=== PATIENT | female | born 1950 | race Caucasian/White ===

== ENCOUNTER 2016-05-18 08:06 | Day surgery (SDC) | payer OTHER ==
[~2016-05-18] VITALS: Ht 167.6 cm; Wt 49.9 kg
[~2016-05-18 08:06] MED LIST: ATEN1TAB75 PO; LORTA5 PO; OXYB5TAB PO; PARO40TA PO; PREG300 PO; PRIN10TA PO; ROSU40 PO; XANA0.5T PO
[2016-05-18] MEDS ORDERED: SODIUM BICARBONATE 100 MEQ in D5W 1000 ML IV SCH (08:45)
[2016-05-18 09:10] VITALS: BP 143/94; PULSE 93; RESP 18; TEMP 98.5; O2SAT 95
[2016-05-18 09:15] LABS: AUTOMATED NEUTROPHIL # 5.2 TH/MM3 (1.8-7.7); BASOPHIL % 0.5 % (0.0-2.0); EOSINOPHIL % 0.4 % (0.0-4.0); HEMATOCRIT 36.4 % (35.0-46.0); HEMO FLAGS DIFF FINAL; LYMPH % 18.8 % (9.0-44.0); LYMPHOCYTE # 1.5 TH/MM3 (1.0-4.8); MEAN CELL VOLUME 84.3 FL (80.0-100.0); MEAN CORPUSCULAR HEMOGLOBIN 28.8 PG (27.0-34.0); MEAN CORPUSCULAR HGB CONC 34.2 % (32.0-36.0); MONO % 16.2 % (0.0-8.0); NEUT % 64.1 % (16.0-70.0); PLATELET COUNT 253 TH/MM3 (150-450); RED BLOOD COUNT 4.31 MIL/MM3 (4.00-5.30); RED CELL DISTRIBUTION WIDTH 14.5 % (11.6-17.2); WHITE BLOOD COUNT 8.1 TH/MM3 (4.0-11.0)
[2016-05-18 09:21] LABS: INTERNATIONAL NORMALIZED RATIO 1.1 RATIO; PROTHROMBIN TIME - PATIENT 12.3 SEC (9.8-11.6)
[2016-05-18 09:36] LABS: BICARBONATE 29.2 MEQ/L (21.0-32.0); POTASSIUM 4.2 MEQ/L (3.5-5.1)
[2016-05-18] MEDS ORDERED: IOHEXOL 350 MG/ML 100 ML BTL (for Cath Lab) OTHER ONE (10:19)
[2016-05-18] MEDS ORDERED: MIDAZOLAM HCL 2 MG/2 ML VIAL ONE ×2 (10:32→11:27)
[2016-05-18] MEDS ORDERED: HEPARIN-NS/PF INJ 500 ML ONE (10:32)
[2016-05-18] MEDS ORDERED: HEPARIN SODIUM - IV 10,000 UNITS/10 ML VIAL ONE (10:54)
[2016-05-18] MEDS ORDERED: CLOPIDOGREL 300 MG TAB ONE (11:52)
[2016-05-18] MEDS ORDERED: oxyCODONE/ACETAMINOPHEN 5 MG/325 MG TAB PO PRN (12:00)
[2016-05-18] MEDS ORDERED: CLOPIDOGREL 75 MG TAB PO SCH (12:00)
--- NOTE | 2016-05-18 12:00 | HHI.PR ---
Immediate Post Op Note Procedure Date: May 18, 2016 Pre Op Diagnosis: PAD, B LE Post Op Diagnosis: PAD, B LE Surgeon: Phill Moore Reinforcing Steel Machine Operator(s): none Procedure: Aortogram w/ B LE angiogram L SFA STRAW HAT BRIM RAISER OPERATOR (ISR) with L SFA stent (6x200 Protege) R MANAGED CARE LIAISON Angioseal Findings: 1. L SFA occlusion (in stent), able to recanalize and STRAW HAT BRIM RAISER OPERATOR; stented from mid-SFA to proximal SFA with 6mm stent excellent runoff and palpable DP after procedure 2. R SFA occlusion (in stent) Complications: none apparent Specimen(s) removed: none Estimated blood loss: 10 mL Anesthesia: MAC Drains: None Patient to: Other (DOCU) Patient Condition: Good Implant/Devices: SEE IMPLANT LOG (if applicable) Date/Time of Procedure: SEE SURGICAL CARE RECORD Phill Moore MD May 18, 2016 12:00
--- NOTE | 2016-05-18 12:05 | PD.VS.PN ---
Subjective Subjective/Hospital Course Pt s/p Aortogram w/ B LE angiogram, L SFA MUSHROOM GROWER/stent and R MANAGER PSYCHOLOGY angioseal. Doing well immediately post procedurally. Palpable pedal pulse on the LEFT Objective Vitals/I&O Date Time Temp Pulse Resp B/P Pulse Ox O2 Delivery O2 Flow Rate FiO2 05/18/16 09:10 98.5 93 18 143/94 95 Physical Exam R groin ok; L DP palpable pulse Laboratory Laboratory Tests Test 05/18/16 09:00 White Blood Count 8.1 Red Blood Count 4.31 Hemoglobin 12.4 Hematocrit 36.4 Mean Corpuscular Volume 84.3 Mean Corpuscular Hemoglobin 28.8 Mean Corpuscular Hemoglobin 34.2 Concent Red Cell Distribution Width 14.5 Platelet Count 253 Mean Platelet Volume 8.1 Neutrophils (%) (Auto) 64.1 Lymphocytes (%) (Auto) 18.8 Monocytes (%) (Auto) 16.2 Eosinophils (%) (Auto) 0.4 Basophils (%) (Auto) 0.5 Neutrophils # (Auto) 5.2 Lymphocytes # (Auto) 1.5 Monocytes # (Auto) 1.3 Eosinophils # (Auto) 0.0 Basophils # (Auto) 0.0 CBC Comment DIFF FINAL Differential Comment Prothrombin Time 12.3 Prothromb Time International 1.1 Ratio Sodium Level 132 Potassium Level 4.2 Chloride Level 96 Carbon Dioxide Level 29.2 Anion Gap 7 Blood Urea Nitrogen 4 Creatinine 0.41 Estimat Glomerular Filtration 156 Rate Random Glucose 93 Calcium Level 8.4 Assessment and Plan Plan Plavix load in PACU D/C home after 4 hours Phill Moore MD May 18, 2016 12:05
[2016-05-18] MEDS ORDERED: hydrALAZINE HCL 20 MG/ML VIAL IV PUSH ONE (15:30)
[2016-05-18] MEDS ORDERED: RESP: ALBUTEROL 2.5 MG/IPRATROPIUM 0.5 MG NEB (SCH) NEB ONE (16:30)
--- NOTE | 2016-05-20 09:17 | MP ---
cc: CAREY MOORE MD Corrected Copy: 05/27/16 DATE OF SURGERY 05/18/2016 PREOPERATIVE DIAGNOSIS Bilateral lower extremity peripheral vascular occlusive disease, symptomatic. POSTOPERATIVE DIAGNOSIS Bilateral lower extremity peripheral vascular occlusive disease, symptomatic. PROCEDURE 1. Aortogram with bilateral lower extremity angiograms 2. Left SFA angioplasty and subsequent stent with a 6 x 200 Protege self-expanding stent. ATTENDING SURGEON Carey Moore MD ANESTHESIA Local with sedation INDICATIONS Ms. Segovia is a lady who has bilateral lower extremity pain and diminished YASH's. Her symptoms are somewhat consistent with rest pain. She is taken to the operating room for angiographic evaluation and treatment. There is no prior catheterization imaging available for my review. DESCRIPTION OF PROCEDURE Informed consent was obtained from the patient. She was taken to the operating room, placed supine on the operating room table and an appropriate time out was taken to ensure the patient's identify, operative site and planned procedure. The administration of 900 mg of Clindamycin was initiated and will be discontinued after a single preoperative dose. Clindamycin was chosen because of the patient's penicillin allergy. Everyone in the room agreed with the time out and we proceeded. Her bilateral groins were prepped and draped. The right groin was anesthetized with 1% lidocaine. A 21 gauge Micropuncture sheath was used to accessed the right common femoral artery. This was exchanged using Seldinger technique through the micropuncture sheath through which a 0.025 Glidewire was introduced. The micropuncture sheath was exchanged for a 4 Hungarian sheath and a VCF catheter was placed over the wire into the sheath and the aortogram and pelvic arteriograms were obtained. The Glidewire was re-introduced, navigated out to the left common femoral artery. The VCF catheter was advanced over this and a left lower extremity arteriogram was obtained. The patient was systemically heparinized with 5000 units of IV Heparin. A Juan wire was introduced through the VCF catheter and the 4 Hungarian sheath removed and a 6 Hungarian 55 cm antral sheath was then introduced and the CXI catheter was placed over the Juan, the Juan was exchanged for a PESTICIDE APPLICATOR wire. Using the CXI and PESTICIDE APPLICATOR, we were able to navigate into the SMA. The patient had a previous stent that was occluded, but we were able to navigate through this and into the distal aspect of the stent and indeed into the SFA distal to the stent. The Juan wire was reintroduced. The entire area was angioplastied with 3 mm and then a 4 mm drug-coated balloon with Paclitaxel. The completion of the angiogram showed improvement of the in-stent occlusion, but there was a flow limiting dissection more proximally. This was treated with a 6 x 200 stent that was post-dilated with a 5 mm balloon. Completion Angiograms showed an excellent results and a recoil extravasation. There was brisk filling of the pedal vessels. The wire, catheter and sheath were removed and a short 6 inch sheath was introduced and the right lower extremity arteriogram was obtained through the 6 Hungarian sheath. The 6 Hungarian sheath was removed and the groin was closed with Angio-Seal. There were no complications. I was present and scrubbed and performed the entire procedure. INTERPRETATION OF IMAGING The patient has patent renal arteries, patent infrarenal, aorta, common iliac arteries, hypogastric and external iliac arteries bilaterally. The left common femoral artery and profunda are patent. The SFA is occluded, there is an occluded stent in the SFA with distal reconstitution distal to the stent and three vessel runoff. After re-canalizing the occluded SFA and angioplasty, there is a flow limiting section proximally and then after placing a stent, this has completely resolved. There is no recoil extravasation. There is no embolic complications to the foot. On the right hand side, the patient has a patent common femoral and profunda and proximal SFA, again there is an extensive amount of stenting in the right SFA done elsewhere and all this is occluded with this reconstitution and three vessel runoff. MD HOANG Chaidez/MEET /10:00 AM /7:24 AM NAIF
== END 2016-05-18 16:55 | disposition home or self-care (01) ==
LOC: HDOC 08:06 → HDIC 08:06 → HDOC 16:55
PROVIDERS: ATTEND Surgery
DX: I73.9 Peripheral vascular disease, unspecified (principal); M79.605 Pain in left leg; M79.604 Pain in right leg
CPT/HCPCS: 36200; 37226; 75625; 75716; 80048; 85025; 85610; 94664; C1725; C1751; C1760; C1769; C1876; C1893; C2623; G0269; J0360; J1644; J2250; J3010; J7070; Q9967

== ENCOUNTER 2016-05-24 15:12 | Emergency (ER) | payer OTHER ==
[~2016-05-24] VITALS: Ht 167.6 cm; Wt 50.0 kg
[2016-05-24 15:14] VITALS: BP 236/81; PULSE 80; RESP 14; TEMP 97.4; O2SAT 95
--- NOTE | 2016-05-24 17:33 | PD ---
HPI Chief Complaint: GI Complaint Time Seen by Provider: 17:30 Travel History International Travel<30 days: No Contact w/Intl Traveler<30days: No Traveled to known affect area: No History of Present Illness HPI Patient is a 65-year-old female presenting to him or child for evaluation of abdominal cramping, diarrhea, headache. Patient states that she is then diagnosed with C. difficile toxin 6 months ago. She's been hospitalized twice for it in the last 4 months. She completed a course of antibiotics 2 weeks ago and her symptoms started immediately back up again. She states the pain in her abdomen is cramping and a 7 out of 10 at its worst. She does report incontinence of stool and wears depends. She reports admitted for head headache which is relieved with ibuprofen. She denies any photophobia or visual changes. Her primary doctor is Dr. Chilel and her GI specialist is Dr. Lewis. [facility] Past Medical History Asthma: Yes Cancer: Yes (BHUMI. BREASTS) Cardiovascular Problems: Yes (ANGIOPLASTY) Coronary Artery Disease: Yes Diabetes: No Gastrointestinal Disorders: Yes (recurrent C. difficile) Glaucoma: No Hepatitis: No Hiatal Hernia: Yes (GERD RESOLVED) Hypertension: Yes Thyroid Disease: No ?: Not Past Surgical History Abdominal Surgery: No Cardiac Surgery: No Gynecologic Surgery: Yes (TV) Thoracic Surgery: No Social History Alcohol Use: Yes (WINE X2/ DAILY) Tobacco Use: Yes (1/2 PPD) Allergies-Medications (Allergen,Severity, Reaction): Coded Allergies: Lipitor (Verified Allergy, Severe, 05/24/16) Penicillin (Verified Allergy, Severe, 05/24/16) Reported Meds & Prescriptions Reported Meds & Active Scripts Active Reported Hydrocodone-Acetaminophen 7.5-325 mg Tab 1 Tab PO Q4H PRN Ditropan (Oxybutynin Chloride) 5 Mg Tab 5 Mg PO BID Lyrica (Pregabalin) 300 Mg Cap 300 Mg PO BID Cymbalta DR (Duloxetine HCl) 60 Mg Capdr 60 Mg PO DAILY Nadolol 80 Mg Tab 80 Mg PO DAILY Lisinopril 40 Mg Tab 40 Mg PO DAILY Review of Systems Except as stated in HPI: all other systems reviewed are Neg General / Constitutional: Positive: Fever, No: Chills HENT: Positive: Headaches, No: Lightheadedness, Neck Pain Cardiovascular: No: Chest Pain or Discomfort Respiratory: No: Shortness of Breath Gastrointestinal: Positive: Diarrhea, Abdominal Pain, Loss of Appetite, No: Nausea, Vomiting Musculoskeletal: No: Myalgias Neurologic: No: Dizziness, Syncope, Focal Abnormalities Physical Exam Narrative GENERAL: Thin, well-developed, alert female. Resting comfortably in no acute distress. SKIN: Warm and dry. HEAD: Atraumatic. Normocephalic. EYES: Pupils equal and round. No scleral icterus. No injection or drainage. ENT: No nasal bleeding or discharge. Mucous membranes pink and moist. NECK: Trachea midline. No JVD. CARDIOVASCULAR: Regular rate and rhythm. No murmur appreciated. RESPIRATORY: No accessory muscle use. Clear to auscultation. Breath sounds equal bilaterally. GASTROINTESTINAL: Abdomen soft, Shavon tender diffusely, no rebound, no guarding , nondistended. Hepatic and splenic margins not palpable. Positive bowel sounds. MUSCULOSKELETAL: No obvious deformities. No clubbing. No cyanosis. No edema. NEUROLOGICAL: Awake and alert. No obvious cranial nerve deficits. Motor grossly within normal limits. Normal speech. PSYCHIATRIC: Appropriate mood and affect; insight and judgment normal. Data Data Last Documented VS Vital Signs Date Time Temp Pulse Resp B/P Pulse Ox O2 Delivery O2 Flow Rate FiO2 05/24/16 15:14 97.4 80 14 236/81 95 Orders Complete Blood Count With Diff (05/24/16 17:27) Comprehensive Metabolic Panel (05/24/16 17:27) C Diff Toxin Pcr (05/24/16 17:27) Enteric Path (Stool) (05/24/16 17:27) Lactic Acid Sepsis Protocol (05/24/16 17:29) Ct Abd/Pel W Iv Contrast(Rout) (05/24/16 17:49) Urinalysis - C+S If Indicated (05/24/16 17:49) Ct Brain W/O Iv Contrast(Rout) (05/24/16 ) Cath For Specimen (05/24/16 19:15) Iohexol 350 Inj (Omnipaque 350 Inj) (05/24/16 19:56) Labs Laboratory Tests Test 05/24/16 18:04 White Blood Count 11.3 TH/MM3 Red Blood Count 4.41 MIL/MM3 Hemoglobin 12.9 GM/DL Hematocrit 37.3 % Mean Corpuscular Volume 84.7 FL Mean Corpuscular Hemoglobin 29.3 PG Mean Corpuscular Hemoglobin 34.6 % Concent Red Cell Distribution Width 14.1 % Platelet Count 355 TH/MM3 Mean Platelet Volume 7.9 FL Neutrophils (%) (Auto) 62.7 % Lymphocytes (%) (Auto) 27.0 % Monocytes (%) (Auto) 9.2 % Eosinophils (%) (Auto) 0.6 % Basophils (%) (Auto) 0.5 % Neutrophils # (Auto) 7.1 TH/MM3 Lymphocytes # (Auto) 3.0 TH/MM3 Monocytes # (Auto) 1.0 TH/MM3 Eosinophils # (Auto) 0.1 TH/MM3 Basophils # (Auto) 0.1 TH/MM3 CBC Comment DIFF FINAL Differential Comment Sodium Level 131 MEQ/L Potassium Level 4.3 MEQ/L Chloride Level 94 MEQ/L Carbon Dioxide Level 29.4 MEQ/L Anion Gap 8 MEQ/L Blood Urea Nitrogen 4 MG/DL Creatinine 0.49 MG/DL Estimat Glomerular Filtration 127 ML/MIN Rate Random Glucose 80 MG/DL Lactic Acid Level 0.8 mmol/L Calcium Level 8.9 MG/DL Total Bilirubin 0.5 MG/DL Aspartate Amino Transf 22 U/L (AST/SGOT) Alanine Aminotransferase 13 U/L (ALT/SGPT) Alkaline Phosphatase 98 U/L Total Protein 8.2 GM/DL Albumin 3.3 GM/DL MDM Medical Decision Making Medical Screen Exam Complete: Yes Emergency Medical Condition: Yes Interpretation(s) Vital Signs Date Time Temp Pulse Resp B/P Pulse Ox O2 Delivery O2 Flow Rate FiO2 05/24/16 15:14 97.4 80 14 236/81 95 Differential Diagnosis Hypertensive urgency versus electrolyte abnormality versus C. difficile toxin versus gastroenteritis versus other Narrative Course Patient is a 65-year-old female presenting to the emergency department for evaluation of abdominal cramping and diarrhea. Patient is a history of C. difficile. Labs ordered and pending. Workup initiated triage, care patient will be transferred to provider when a medical bed is available. Philomena Aviles May 24, 2016 17:33
[2016-05-24] MEDS ORDERED: LISI40TA PO (18:02)
[2016-05-24] MEDS ORDERED: CYMB60CA PO (18:02)
[2016-05-24] MEDS ORDERED: NADO80TA PO (18:02)
[2016-05-24] MEDS ORDERED: OXYB5TAB10 PO (18:02)
[2016-05-24] MEDS ORDERED: PREG300 PO (18:02)
[2016-05-24] MEDS ORDERED: HYDR-3580 PO (18:03)
[2016-05-24 18:22] LABS: AUTOMATED NEUTROPHIL # 7.1 TH/MM3 (1.8-7.7); BASOPHIL # 0.1 TH/MM3 (0-0.2); BASOPHIL % 0.5 % (0.0-2.0); EOSINOPHIL # 0.1 TH/MM3 (0-0.4); EOSINOPHIL % 0.6 % (0.0-4.0); HEMATOCRIT 37.3 % (35.0-46.0); HEMO FLAGS DIFF FINAL; MEAN CELL VOLUME 84.7 FL (80.0-100.0); MEAN CORPUSCULAR HEMOGLOBIN 29.3 PG (27.0-34.0); MEAN CORPUSCULAR HGB CONC 34.6 % (32.0-36.0); MONO % 9.2 % (0.0-8.0); NEUT % 62.7 % (16.0-70.0); PLATELET COUNT 355 TH/MM3 (150-450); RED BLOOD COUNT 4.41 MIL/MM3 (4.00-5.30); RED CELL DISTRIBUTION WIDTH 14.1 % (11.6-17.2); WHITE BLOOD COUNT 11.3 TH/MM3 (4.0-11.0)
[2016-05-24 18:40] LABS: ANION GAP 8 MEQ/L (5-15); AST (GOT) 22 U/L (15-37); BICARBONATE 29.4 MEQ/L (21.0-32.0); BLOOD UREA NITROGEN 4 MG/DL (7-18); CHLORIDE 94 MEQ/L (98-107); GLOMERULAR FILTRATION RATE 127 ML/MIN (>89); POTASSIUM 4.3 MEQ/L (3.5-5.1); SODIUM (NA) 131 MEQ/L (136-145)
[2016-05-24 18:43] LABS: ALKALINE PHOSPHATASE 98 U/L (45-117); ALT (GPT) 13 U/L (10-53); TOTAL BILIRUBIN ADULT 0.5 MG/DL (0.2-1.0)
[2016-05-24] MEDS ORDERED: IOHEXOL 350 MG/ML 10 ML VIAL (for RAD DIAG) IV ONE (19:56)
--- NOTE | 2016-05-24 20:06 | RADRPT ---
EXAM DATE/TIME: 05/24/2016 19:40 [facility] COMPARISON: CT BRAIN W/O CONTRAST, July 14, 2013, 14:31. INDICATIONS : Cephalgia. RADIATION DOSE: 51.91 CTDIvol (mGy) MEDICAL HISTORY : Hypertension. Cardiovascular disease Carcinoma, breast. SURGICAL HISTORY : None. ENCOUNTER: Initial ACUITY: 1 day PAIN SCALE: 4/10 LOCATION: cranial TECHNIQUE: Multiple contiguous axial images were obtained of the head. Using automated exposure control and adj ustment of the mA and/or kV according to patient size, radiation dose was kept as low as reasonably a chievable to obtain optimal diagnostic quality images. FINDINGS: CEREBRUM: The ventricles are normal for age. No evidence of midline shift, mass lesion, hemorrhage or acute in farction. No extra-axial fluid collections are seen. POSTERIOR FOSSA: The cerebellum and brainstem are intact. The 4th ventricle is midline. The cerebellopontine angle i s unremarkable. EXTRACRANIAL: The visualized portion of the orbits is intact. There is opacification of the left maxillary sinus. SKULL: The calvaria is intact. No evidence of skull fracture. CONCLUSION: 1. Opacification of the left maxillary sinus. 2. No acute hemorrhage or mass effect. Ghassan Argueta MD on May 24, 2016 at 20:04 Board Certified Radiologist. This report was verified electronically.
--- NOTE | 2016-05-24 20:14 | RADRPT ---
EXAM DATE/TIME: 05/24/2016 19:44 [facility] COMPARISON: No previous studies available for comparison. INDICATIONS : Abdomen pain. IV CONTRAST: 100 cc Omnipaque 350 (iohexol) IV ORAL CONTRAST: No oral contrast ingested. RADIATION DOSE: 8.05 CTDIvol (mGy) MEDICAL HISTORY : Hernia, hiatal. Carcinoma, breast. Gastroesophageal reflux disease. SURGICAL HISTORY : None. ENCOUNTER: Initial ACUITY: 1 day PAIN SCALE: 5/10 LOCATION: abdomen. TECHNIQUE: Volumetric scanning of the abdomen and pelvis was performed. Using automated exposure control and ad justment of the mA and/or kV according to patient size, radiation dose was kept as low as reasonably achievable to obtain optimal diagnostic quality images. FINDINGS: LOWER LUNGS: The visualized lower lungs are clear. LIVER: Homogeneous density without lesion. There is no dilation of the biliary tree. No calcified gallston es. SPLEEN: Normal size without lesion. PANCREAS: Within normal limits. KIDNEYS: The right kidney is normal in size and shape with small simple cysts. There are multiple calcificatio ns the majority of which appear to be renal vascular. The left kidney is small and atrophic in appear ance. There is a simple cyst extending off the upper pole measuring up to 3 cm. ADRENAL GLANDS: Within normal limits. VASCULAR: There is no aortic aneurysm. There is an inferior vena caval filter in place which is located high in the IVC above the level of the renal arteries at the level of the jhon hepatis. BOWEL/MESENTERY: The small bowel is unopacified limiting the sensitivity. There is a nonspecific bowel gas pattern wit h multiple loops of air containing bowel with air-fluid levels in the anterior abdomen. The distal sm all bowel and colon are decompressed in appearance. There is no free air or abnormal visualized fluid collection. ABDOMINAL WALL: Within normal limits. RETROPERITONEUM: There is no lymphadenopathy. BLADDER: No wall thickening or mass. REPRODUCTIVE: Within normal limits. INGUINAL: There is no lymphadenopathy or hernia. MUSCULOSKELETAL: The patient is status post bilateral hip arthroplasty with streak artifact obscuring portions of the pelvis. Osteopenia and degenerative change are present. There are postoperative changes in this lumba r spine status post multilevel fusion. CONCLUSION: 1. Nonspecific bowel gas pattern which may represent ileus or gastroenteritis. Obstruction is less li sigifredo. No oral contrast was given. 2. Small atrophic left kidney. 3. Right renal calcifications with no obstruction. 4. Inferior vena caval filter in place above the level of the renal veins at the level of the jhon h epatis. Ghassan Argueta MD on May 24, 2016 at 20:05 Board Certified Radiologist. This report was verified electronically.
[2016-05-24 20:37] LABS: BLOOD, URINE NEG (NEG); GLUCOSE,URINE NEG (NEG); KETONE, URINE NEG (NEG); NITRITE,URINE NEG (NEG); SQUAMOUS EPITHELIAL CELL URINE <1 /hpf (0-5); URINE COLOR LIGHT-YELLOW (YELLW/STRAW)
[2016-05-24 21:04] LABS: COMMENT (UR) CULT NOT INDICATED; CULTURE IF INDICATED CULT NOT INDICATED
[2016-05-24 21:17] VITALS: BP 175/94; PULSE 71; RESP 16; O2SAT 93
[2016-05-24 22:25] LABS: C. DIFF EPI 027 PRESUMPTIVE NEGATIVE (NEGATIVE); C. DIFF TOXIN PCR NEGATIVE (NEGATIVE)
--- NOTE | 2016-05-24 22:40 | PD ---
Data Data Last Documented VS Vital Signs Date Time Temp Pulse Resp B/P Pulse Ox O2 Delivery O2 Flow Rate FiO2 05/24/16 21:17 71 16 175/94 93 Room Air 05/24/16 15:14 97.4 Orders Complete Blood Count With Diff (05/24/16 17:27) Comprehensive Metabolic Panel (05/24/16 17:27) C Diff Toxin Pcr (05/24/16 17:27) Enteric Path (Stool) (05/24/16 17:27) Lactic Acid Sepsis Protocol (05/24/16 17:29) Ct Abd/Pel W Iv Contrast(Rout) (05/24/16 17:49) Urinalysis - C+S If Indicated (05/24/16 17:49) Ct Brain W/O Iv Contrast(Rout) (05/24/16 ) Cath For Specimen (05/24/16 19:15) Iohexol 350 Inj (Omnipaque 350 Inj) (05/24/16 19:56) Labs Laboratory Tests Test 05/24/16 05/24/16 18:04 19:20 White Blood Count 11.3 TH/MM3 Red Blood Count 4.41 MIL/MM3 Hemoglobin 12.9 GM/DL Hematocrit 37.3 % Mean Corpuscular Volume 84.7 FL Mean Corpuscular Hemoglobin 29.3 PG Mean Corpuscular Hemoglobin 34.6 % Concent Red Cell Distribution Width 14.1 % Platelet Count 355 TH/MM3 Mean Platelet Volume 7.9 FL Neutrophils (%) (Auto) 62.7 % Lymphocytes (%) (Auto) 27.0 % Monocytes (%) (Auto) 9.2 % Eosinophils (%) (Auto) 0.6 % Basophils (%) (Auto) 0.5 % Neutrophils # (Auto) 7.1 TH/MM3 Lymphocytes # (Auto) 3.0 TH/MM3 Monocytes # (Auto) 1.0 TH/MM3 Eosinophils # (Auto) 0.1 TH/MM3 Basophils # (Auto) 0.1 TH/MM3 CBC Comment DIFF FINAL Differential Comment Sodium Level 131 MEQ/L Potassium Level 4.3 MEQ/L Chloride Level 94 MEQ/L Carbon Dioxide Level 29.4 MEQ/L Anion Gap 8 MEQ/L Blood Urea Nitrogen 4 MG/DL Creatinine 0.49 MG/DL Estimat Glomerular Filtration 127 ML/MIN Rate Random Glucose 80 MG/DL Lactic Acid Level 0.8 mmol/L Calcium Level 8.9 MG/DL Total Bilirubin 0.5 MG/DL Aspartate Amino Transf 22 U/L (AST/SGOT) Alanine Aminotransferase 13 U/L (ALT/SGPT) Alkaline Phosphatase 98 U/L Total Protein 8.2 GM/DL Albumin 3.3 GM/DL Urine Color LIGHT-YELLOW Urine Turbidity CLEAR Urine pH 6.0 Urine Specific [place] 1.003 Urine Protein NEG mg/dL Urine Glucose (UA) NEG mg/dL Urine Ketones NEG mg/dL Urine Occult Blood NEG Urine Nitrite NEG Urine Bilirubin NEG Urine Urobilinogen LESS THAN 2.0 MG/DL Urine Leukocyte Esterase TRACE Urine WBC 1 /hpf Urine Squamous Epithelial <1 /hpf Cells Microscopic Urinalysis Comment CULT NOT INDICATED Stool C. difficile Toxin (PCR) NEGATIVE Stl C. difficile Toxin PRESUMPTIVE Epiderm 027 NEGATIVE MDM Supervised Visit with KWAME: Yes Narrative Course The patient was initially evaluated in triage by my PA and brought back to a medical bed when it became available. See her note for further details. Briefly this is a 65-year-old female who reports history of C. difficile colitis with 2 hospitalizations in the last 4 months, completed course of Flagyl and vancomycin 2 weeks ago, here for evaluation of lower abdominal cramping and diarrhea. Patient reports that she has also had significant weight loss. Abdominal cramping is lower. On physical exam her abdomen is benign. There are no peritoneal signs. Vital signs show heart rate 71, blood pressure 175/94, pulse ox 95% on room air, oral temp of 97.4F. CBC shows WBC 11.3, hemoglobin 12.9, hematocrit 37.3, platelets 355. CMP is remarkable for sodium 131, chloride 94, otherwise unremarkable. Lactic acid is 0.8. CT head: Opacification of the left maxillary sinus. No acute hemorrhage or mass effect. The patient was complaining of intermittent frontal headaches, therefore this study was ordered. He is currently headache free. CT abdomen pelvis: CONCLUSION: 1. Nonspecific bowel gas pattern which may represent ileus or gastroenteritis. Obstruction is less likely. No oral contrast was given. 2. Small atrophic left kidney. 3. Right renal calcifications with no obstruction. 4. Inferior vena caval filter in place above the level of the renal veins at the level of the jhon hepatis. UA is not suggestive of UTI. Small stool sample that was obtained is negative for C. difficile. The patient was made aware of all findings. She is resting comfortably. Again her abdominal exam is benign. She seems very frustrated that she has been having frequent diarrhea. She is not dehydrated. She has normal renal function. She is stable for discharge home with outpatient follow-up with her executive sales manager and primary care physician this week. She was informed on when to return to the emergency department. She verbalizes understanding and agreement with plan. Diagnosis Primary Impression: Diarrhea Qualified Code: R19.7 - Diarrhea, unspecified type Referrals: Spray Machine Tender 2 days Primary Care Physician 2 days Additional Instruction: Follow-up with your executive sales manager this week. Follow-up with your primary care physician this week. Return to the emergency department for worsening symptoms or any other concerns. Disposition: 01 DISCHARGE HOME Condition: Stable Trya Dean MD May 24, 2016 22:40
[2016-05-24 23:12] VITALS: BP 170/85
== END 2016-05-24 23:12 | disposition home or self-care (01) ==
LOC: NEPA 15:12
DX: R19.7 Diarrhea, unspecified (principal); R10.9 Unspecified abdominal pain; R51 Headache; J45.909 Unspecified asthma, uncomplicated; I25.10 Atherosclerotic heart disease of native coronary artery without angina pectoris; I10 Essential (primary) hypertension; F17.210 Nicotine dependence, cigarettes, uncomplicated
CPT/HCPCS: 70450; 74177; 80053; 81001; 83605; 85025; 87493; 87506; 99284; Q9967